=== PATIENT | female | born 1965 | race Two or more races ===

== ENCOUNTER 2022-10-03 18:14 | Emergency (ER) | payer BC, OTHER ==
[~2022-10-03] VITALS: Ht 167.6 cm; Wt 79.0 kg
[2022-10-03 21:42] VITALS: BP 149/74; PULSE 87; RESP 15; TEMP 98.1; O2SAT 96
[2022-10-03] MEDS ORDERED: IBUP-1455 PO ×2 (22:14)
[2022-10-03] MEDS ORDERED: IBUPROFEN 800 MG TAB PO ONE (22:15)
[2022-10-03] MEDS ORDERED: ACET650T12 PO (22:22)
[2022-10-03] MEDS ORDERED: ACETAMINOPHEN 325 MG TAB PO ONE (22:30)
== END 2022-10-03 22:44 | disposition home or self-care (01) ==
LOC: ER 18:14
DX: M25.512 Pain in left shoulder (principal); R07.89 Other chest pain; Z79.1 Long term (current) use of non-steroidal anti-inflammatories (NSAID); V89.2XXA Person injured in unspecified motor-vehicle accident, traffic, initial encounter; Y93.I9 Activity, other involving external motion; Y92.89 Other specified places as the place of occurrence of the external cause; Y99.8 Other external cause status
CPT/HCPCS: 71045; 73030; 93005